=== PATIENT | female | born 1985 | race Two or more races ===

== ENCOUNTER → 2017-07-08 | Emergency (ER) | payer OTHER ==
[~2017-07-08] VITALS: Ht 165.1 cm; Wt 68.9 kg
[~2017-07-08] MED LIST: CATAFLAM50 MG PO; FLEXERIL10 MG PO; LEVSIN0.125 MG PO; PROTONIX40 MG PO; ZANTAC300 MG PO; ZOFRAN4 MG PO
== END | disposition home or self-care (01) ==
LOC: ER 16:04
DX: S40.012A Contusion of left shoulder, initial encounter (principal); V49.9XXA Car occupant (driver) (passenger) injured in unspecified traffic accident, initial encounter; Y93.89 Activity, other specified; Y92.488 Other paved roadways as the place of occurrence of the external cause; Y99.8 Other external cause status

== ENCOUNTER 2017-09-05 11:28 | Outpatient (CLI) | payer OTHER | END 2017-09-05 11:53 | disposition home or self-care (01) | LOC: SONOGRAMA 11:28 | DX: N60.11 Diffuse cystic mastopathy of right breast (principal); N60.12 Diffuse cystic mastopathy of left breast ==

== ENCOUNTER 2017-10-01 06:32 | Outpatient (CLI) | payer OTHER | END 2017-10-01 06:37 | disposition home or self-care (01) | LOC: LAB 06:32 → ADM 07:15 → LAB 07:15 | DX: I10 Essential (primary) hypertension (principal); D64.89 Other specified anemias; D68.8 Other specified coagulation defects; N39.0 Urinary tract infection, site not specified; E11.00 Type 2 diabetes mellitus with hyperosmolarity without nonketotic hyperglycemic-hyperosmolar coma (NKHHC); E04.1 Nontoxic single thyroid nodule; E78.2 Mixed hyperlipidemia ==

== ENCOUNTER 2017-10-17 06:08 | Inpatient (IN) | payer OTHER | END 2017-10-18 11:45 | disposition home or self-care (01) | DRG 584 | LOC: CIR.AMB 06:08 → O/R 18:45 | PROVIDERS: Plastic Surgery; Surgery | PROC: 4A033R1 Measurement of Arterial Saturation, Peripheral, Percutaneous Approach (ICD-10-PCS; 2017-10-17) | PROC: 3E0F7GC Introduction of Other Therapeutic Substance into Respiratory Tract, Via Natural or Artificial Opening (ICD-10-PCS; 2017-10-17) | PROC: 0HBT0ZZ Excision of Right Breast, Open Approach (ICD-10-PCS; principal; 2017-10-17 09:30) | PROC: 0H0V0JZ Alteration of Bilateral Breast with Synthetic Substitute, Open Approach (ICD-10-PCS; 2017-10-17 09:30) | DX: D24.1 Benign neoplasm of right breast (principal); J81.1 Chronic pulmonary edema; J95.89 Other postprocedural complications and disorders of respiratory system, not elsewhere classified; N64.82 Hypoplasia of breast; R09.02 Hypoxemia ==

== ENCOUNTER 2018-01-26 09:36 | Outpatient (CLI) | payer OTHER | END 2018-01-26 09:40 | disposition home or self-care (01) | LOC: LAB 09:36 | DX: E22.1 Hyperprolactinemia (principal); N91.3 Primary oligomenorrhea ==

== ENCOUNTER 2018-06-04 20:27 | Emergency (ER) | payer OTHER ==
[~2018-06-04] VITALS: Ht 170.2 cm; Wt 67.1 kg
== END 2018-06-04 21:44 | disposition home or self-care (01) ==
LOC: ER 20:27
DX: S01.122A Laceration with foreign body of left eyelid and periocular area, initial encounter (principal); W45.8XXA Other foreign body or object entering through skin, initial encounter; Y93.89 Activity, other specified; Y92.098 Other place in other non-institutional residence as the place of occurrence of the external cause; Y99.8 Other external cause status

== ENCOUNTER → 2018-06-20 07:24 | Outpatient (CLI) | payer OTHER | END | disposition home or self-care (01) | LOC: LAB 07:24 | DX: E78.49 Other hyperlipidemia (principal); R10.2 Pelvic and perineal pain; Z00.00 Encounter for general adult medical examination without abnormal findings; R43.0 Anosmia ==

== ENCOUNTER 2019-02-13 07:41 | Outpatient (CLI) | payer OTHER | END 2019-02-13 07:48 | disposition home or self-care (01) | LOC: LAB 07:41 | DX: M26.629 Arthralgia of temporomandibular joint, unspecified side (principal); Z00.00 Encounter for general adult medical examination without abnormal findings; E78.49 Other hyperlipidemia; E55.9 Vitamin D deficiency, unspecified; R42 Dizziness and giddiness; R10.2 Pelvic and perineal pain; N91.0 Primary amenorrhea ==

== ENCOUNTER 2019-03-13 20:31 | Emergency (ER) | payer OTHER ==
[~2019-03-13] VITALS: Ht 170.2 cm; Wt 62.6 kg
== END 2019-03-14 00:01 | disposition home or self-care (01) ==
LOC: ER 20:31
DX: R10.13 Epigastric pain (principal); E86.0 Dehydration; R11.2 Nausea with vomiting, unspecified

== ENCOUNTER 2019-11-20 07:48 | Outpatient (CLI) | payer OTHER | END 2019-11-20 15:00 | disposition home or self-care (01) | LOC: LAB 07:48 | PROVIDERS: ATTEND General Practice | DX: R10.84 Generalized abdominal pain (principal); N39.0 Urinary tract infection, site not specified; R42 Dizziness and giddiness; E55.9 Vitamin D deficiency, unspecified; E78.49 Other hyperlipidemia; Z00.00 Encounter for general adult medical examination without abnormal findings; R53.1 Weakness; Z79.890 Hormone replacement therapy ==

== ENCOUNTER → 2019-11-30 07:00 | Outpatient (CLI) | payer OTHER | END | disposition home or self-care (01) | LOC: PPH VACUNA 07:00 | DX: Z23 Encounter for immunization (principal) ==

== ENCOUNTER 2020-02-08 06:29 | Outpatient (CLI) | payer OTHER | END 2020-02-08 06:37 | disposition home or self-care (01) | LOC: LAB 06:29 | PROVIDERS: ATTEND Obstetrics & Gynecology | DX: E03.8 Other specified hypothyroidism (principal); N39.0 Urinary tract infection, site not specified; E16.2 Hypoglycemia, unspecified; E78.2 Mixed hyperlipidemia; E56.8 Deficiency of other vitamins; E55.9 Vitamin D deficiency, unspecified; R97.1 Elevated cancer antigen 125 [CA 125]; R53.1 Weakness; E66.01 Morbid (severe) obesity due to excess calories; Z11.3 Encounter for screening for infections with a predominantly sexual mode of transmission ==

== ENCOUNTER 2020-04-03 07:53 | Outpatient (CLI) | payer OTHER | END 2020-04-03 07:56 | disposition home or self-care (01) | LOC: SONOGRAMA 07:53 | PROVIDERS: ATTEND Radiology Diagnostic Radiology | DX: N84.0 Polyp of corpus uteri (principal); N93.8 Other specified abnormal uterine and vaginal bleeding ==

== ENCOUNTER → 2020-05-19 07:33 | Outpatient (CLI) | payer OTHER | END | disposition home or self-care (01) | LOC: LAB 07:33 | PROVIDERS: ATTEND General Practice | DX: N92.5 Other specified irregular menstruation (principal) ==

== ENCOUNTER 2020-06-22 08:27 | Outpatient (CLI) | payer OTHER | END 2020-06-22 10:25 | disposition home or self-care (01) | LOC: RX STUDY 08:27 | PROVIDERS: ATTEND General Practice | DX: N97.1 Female infertility of tubal origin (principal); N97.8 Female infertility of other origin ==

== ENCOUNTER → 2020-08-09 06:21 | Outpatient (CLI) | payer OTHER | END | disposition home or self-care (01) | LOC: LAB 06:21 | PROVIDERS: ATTEND General Practice | DX: E11.9 Type 2 diabetes mellitus without complications (principal); I10 Essential (primary) hypertension; D68.9 Coagulation defect, unspecified; N39.0 Urinary tract infection, site not specified ==

== ENCOUNTER 2021-03-07 15:08 | Emergency (ER) | payer OTHER ==
[~2021-03-07] VITALS: Ht 167.6 cm; Wt 68.0 kg
== END 2021-03-07 16:47 | disposition home or self-care (01) ==
LOC: ER 15:08
DX: B34.9 Viral infection, unspecified (principal); Z3A.12 12 weeks gestation of pregnancy

== ENCOUNTER 2021-03-13 10:24 | Outpatient (CLI) | payer OTHER ==
[2021-03-14] MEDS ORDERED: PRENATAL + DHA1 EAC1 (21:27)
== END 2021-03-13 11:20 | disposition home or self-care (01) ==
LOC: PRENATAL 10:24
PROVIDERS: ATTEND Obstetrics & Gynecology Maternal & Fetal Medicine
DX: Z36.89 Encounter for other specified antenatal screening (principal); O36.80X1 Pregnancy with inconclusive fetal viability, fetus 1; O09.511 Supervision of elderly primigravida, first trimester; Z3A.13 13 weeks gestation of pregnancy

== ENCOUNTER 2021-03-14 21:22 | Emergency (ER) | payer OTHER ==
[~2021-03-14] VITALS: Ht 167.6 cm; Wt 68.0 kg
[2021-03-14] MEDS ORDERED: PRENATAL + DHA1 EAC1 (21:27)
== END 2021-03-15 00:58 | disposition home or self-care (01) ==
LOC: ER 21:22
DX: O23.31 Infections of other parts of urinary tract in pregnancy, first trimester (principal); N39.0 Urinary tract infection, site not specified; Z3A.13 13 weeks gestation of pregnancy

== ENCOUNTER → 2021-03-16 | Outpatient (CLI) | payer OTHER ==
[~2021-03-16] MED LIST changes: +PRENATAL + DHA1 EAC1
== END | disposition home or self-care (01) ==
LOC: PPH VACUNA
DX: Z23 Encounter for immunization (principal)

== ENCOUNTER 2021-05-01 08:00 | Outpatient (CLI) | payer OTHER | END 2021-05-01 09:00 | disposition home or self-care (01) | LOC: PRENATAL 08:00 | PROVIDERS: ATTEND Obstetrics & Gynecology Maternal & Fetal Medicine | DX: O09.519 Supervision of elderly primigravida, unspecified trimester (principal); O35.0XX0 Maternal care for (suspected) central nervous system malformation in fetus, not applicable or unspecified; O26.849 Uterine size-date discrepancy, unspecified trimester ==

== ENCOUNTER 2021-05-31 23:04 | Emergency (ER) | payer OTHER ==
[~2021-05-31] VITALS: Ht 167.6 cm; Wt 77.1 kg
[2021-05-31] MEDS ORDERED: MACRODANTIN100 M1 PO (23:48)
== END 2021-06-01 00:06 | disposition home or self-care (01) ==
LOC: ER 23:04
DX: O99.612 Diseases of the digestive system complicating pregnancy, second trimester (principal); K29.00 Acute gastritis without bleeding; Z3A.24 24 weeks gestation of pregnancy; O23.42 Unspecified infection of urinary tract in pregnancy, second trimester; N39.0 Urinary tract infection, site not specified

== ENCOUNTER 2021-07-13 06:28 | Outpatient (CLI) | payer OTHER ==
[~2021-07-13 06:28] MED LIST changes: +MACRODANTIN100 M1 PO
== END 2021-07-13 06:29 | disposition home or self-care (01) ==
LOC: LAB 06:28
PROVIDERS: ATTEND Obstetrics & Gynecology
DX: O24.419 Gestational diabetes mellitus in pregnancy, unspecified control (principal)